=== PATIENT | female | born 1965 | race Caucasian/White ===

== ENCOUNTER 2017-07-10 18:52 | Emergency (ER) | payer OTHER ==
--- NOTE | 2017-07-13 12:08 | ER ---
ADMIT: 07/10/2017 RM/LOC: ER MR#: [id number] [place], [place] [id number] YAYO LEW [address] [place] [address] Emergency Room Report SEX: F AGE: 52 : 1965 DATE: 07/10/2017 SUBJECTIVE: Ms. Lew just came from Dr. Whelan's office today complaining of lower abdomen pain. She did have a colonoscopy yesterday. She feels bloated. When she saw Dr. Whelan, labs were done, x-rays were taken and he sent her on her way with a prescription for Cipro according to her report. However, she comes to the emergency room stating that she has to go to traveling somewhere out of the [facility], [facility], and she is still having pain and wants to know what she can do about it. I went ahead and did a perf series, repeated labs. The CBC is within normal limits. The CMP shows a potassium of 3.3, calcium of 8.4, and everything else is normal. Her urine was rechecked. She has leukocyte esterase 3+, wbc's 10, rbc's 2, and culture and sensitivity to follow. Perf series is pending. Evangelina Tejada will follow up on this case and get disposition for this patient. JESUS Cheney / Frederic Forrest MD / judyl JOB #: [id number] CC: Frederic Forrest MD, Attending Physician
== END 2017-07-10 21:33 | disposition home or self-care (01) ==
LOC: ER 18:52
DX: N39.0 Urinary tract infection, site not specified (principal); Z90.49 Acquired absence of other specified parts of digestive tract; Z98.890 Other specified postprocedural states; Z79.899 Other long term (current) drug therapy